=== PATIENT | female | born 1935 | race Caucasian/White ===

== ENCOUNTER 2016-12-12 08:39 | Inpatient (IN) | payer BC, MEDICARE ==
[2016-12-12] MEDS ORDERED: SODIUM CHLORIDE 0.9% 1000 ML SOL IV SCH (09:15)
[2016-12-12 09:27] LABS: APPEARANCE,URINE Clear; BILIRUBIN,URINE 1+ (NEGATIVE); COLOR,URINE Yellow; GLUCOSE, URINE (UA) NEGATIVE (NEGATIVE); KETONES,URINE TRACE (NEGATIVE); LEUKOCYTE ESTERASE ,URINE NEGATIVE (NEGATIVE); NITRATE,URINE NEGATIVE (NEGATIVE); OCCULT BLOOD,URINE TRACE LYSED (NEG-TRACE); PH,URINE 5.5
[2016-12-12 09:49] LABS: ICTOTEST,URINE NEGATIVE (NEGATIVE); RBC,URINE 0-2 (0-3AV/HPF); WBC,URINE 0-2 (0-5AV/HPF)
[2016-12-12 09:58] LABS: HEMATOCRIT 52 % (35-47); MEAN CORPUSCULAR HGB CONC 33.4 gm/dl (32.0-36.0); MEAN CORPUSCULAR VOLUME 87 fL (81-99)
[2016-12-12] MEDS ORDERED: ACETAMINOPHEN 325 MG PO ONE (10:07)
[2016-12-12] MEDS ORDERED: ACETAMINOPHEN 325 MG ONE (10:08)
[2016-12-12 10:11] LABS: BASOPHILS % (MANUAL) 0 % (0-3); EOSINOPHILS % (MANUAL) 0 % (0-9); LYMPHOCYTES % (MANUAL) 16 % (10-50); NORMAL RBCS PRESENT
[2016-12-12 10:23] LABS: CALCIUM 8.2 mg/dl (8.5-10.1); POTASSIUM 4.3 mMol/L (3.5-5.1)
[2016-12-12] MEDS: SODIUM CHLORIDE 0.9% 1000ML 1,000 ML IV SCH ×2 (10:43→19:33)
[2016-12-12] MEDS ORDERED: WARFARIN SODIUM 5 MG TAB PO SCH (14:00)
[2016-12-12] MEDS ORDERED: DILTIAZEM ER 120 MG C24 ONE (14:04)
[2016-12-12] MEDS: DILTIAZEM ER 120 MG C24 PO SCH (14:28)
[2016-12-12] MEDS: OSELTAMIVIR PHOSPHATE 75 MG CAP PO SCH ×2 (16:19→21:36)
[2016-12-12] MEDS: DOCUSATE SODIUM 100 MG SGL PO SCH (21:36)
[2016-12-13] MEDS: SODIUM CHLORIDE 0.9% 1000ML 1,000 ML IV SCH (03:10)
[2016-12-13 07:35] LABS: BASOPHILS % (AUTO) 2 % (0-3); EOSINOPHILS % (AUTO) 0 % (0-9); HEMATOCRIT 40 % (35-47); MEAN CORPUSCULAR HGB CONC 35.8 gm/dl (32.0-36.0); MEAN CORPUSCULAR VOLUME 87 fL (81-99); MONOCYTES % (AUTO) 11.9 % (0-12); NEUTROPHILS % (AUTO) 35.7 % (37-80)
[2016-12-13 07:37] LABS: CALCIUM 6.9 mg/dl (8.5-10.1); POTASSIUM 4.5 mMol/L (3.5-5.1)
[2016-12-13] MEDS: DILTIAZEM ER 120 MG C24 PO SCH (08:35)
[2016-12-13] MEDS: DOCUSATE SODIUM 100 MG SGL PO SCH ×2 (08:35→20:36)
[2016-12-13] MEDS: FOLIC ACID 1 MG TAB PO SCH (08:36)
[2016-12-13] MEDS: ENOXAPARIN 40 MG SOL SC SCH (08:37)
[2016-12-13] MEDS: OSELTAMIVIR PHOSPHATE 75 MG CAP PO SCH ×2 (08:42→20:36)
[2016-12-13] MEDS: DEXTROSE/SALINE 0.45% 1,000 ML IV SCH ×2 (08:46→19:11)
[2016-12-13] MEDS ORDERED: WARFARIN SODIUM 7.5 MG TAB PO SCH ×2 (13:49→18:00)
[2016-12-14] MEDS: DEXTROSE/SALINE 0.45% 1,000 ML IV SCH (04:55)
[2016-12-14 07:18] LABS: BASOPHILS % (AUTO) 1 % (0-3); EOSINOPHILS % (AUTO) 2 % (0-9); HEMATOCRIT 43 % (35-47); MEAN CORPUSCULAR HGB CONC 33.3 gm/dl (32.0-36.0); MEAN CORPUSCULAR VOLUME 88 fL (81-99); MONOCYTES % (AUTO) 9.6 % (0-12); NEUTROPHILS % (AUTO) 18.6 % (37-80)
[2016-12-14 07:47] LABS: CALCIUM 7.5 mg/dl (8.5-10.1); POTASSIUM 3.7 mMol/L (3.5-5.1)
[2016-12-14] MEDS: ENOXAPARIN 40 MG SOL SC SCH (09:12)
[2016-12-14] MEDS: OSELTAMIVIR PHOSPHATE 75 MG CAP PO SCH ×2 (09:13→20:22)
[2016-12-14] MEDS: DOCUSATE SODIUM 100 MG SGL PO SCH ×2 (09:13→20:22)
[2016-12-14] MEDS: FOLIC ACID 1 MG TAB PO SCH (09:13)
[2016-12-14] MEDS: DILTIAZEM ER 120 MG C24 PO SCH (09:13)
[2016-12-14 11:50] VITALS: RESP 20
[2016-12-14] MEDS: SODIUM CHLORIDE 0.9% FLUSH 10 ML SOL IV SCH (15:45)
[2016-12-14] MEDS ORDERED: WARFARIN SODIUM 5 MG TAB PO SCH (18:00)
[2016-12-14] MEDS: WARFARIN SODIUM 7.5 MG TAB PO SCH (18:32)
[2016-12-15] MEDS: SODIUM CHLORIDE 0.9% FLUSH 10 ML SOL IV SCH ×2 (01:24→09:07)
[2016-12-15 08:43] VITALS: BP 130/82; TEMP 98.5; O2SAT 94
[2016-12-15] MEDS: DILTIAZEM ER 120 MG C24 PO SCH (08:50)
[2016-12-15] MEDS: FOLIC ACID 1 MG TAB PO SCH (08:51)
[2016-12-15] MEDS: DOCUSATE SODIUM 100 MG SGL PO SCH (08:51)
[2016-12-15] MEDS: ENOXAPARIN 40 MG SOL SC SCH (08:52)
[2016-12-15] MEDS: OSELTAMIVIR PHOSPHATE 75 MG CAP PO SCH (08:52)
[2016-12-15] MEDS: WARFARIN SODIUM 7.5 MG TAB PO SCH (09:08)
[2016-12-15 11:22] VITALS: PULSE 85
== END 2016-12-15 11:30 | DRG 641 ==
LOC: ED 08:39 → UNDOADMIN 11:29 → ACUTE CARE 11:29
PROVIDERS: ADMIT Family Medicine; ATTEND Family Medicine
PROC: F01ZDFZ Gait and/or Balance Assessment using Assistive, Adaptive, Supportive or Protective Equipment (ICD-10-PCS; principal; 2016-12-13)
PROC: F01ZBZZ Bed Mobility Assessment (ICD-10-PCS; 2016-12-13)
PROC: F01ZCZZ Transfer Assessment (ICD-10-PCS; 2016-12-13)
PROC: F02Z1ZZ Dressing Assessment (ICD-10-PCS; 2016-12-13)
PROC: F02Z0ZZ Bathing/Showering Assessment (ICD-10-PCS; 2016-12-13)
PROC: F02Z3ZZ Grooming/Personal Hygiene Assessment (ICD-10-PCS; 2016-12-13)
DX: E86.0 Dehydration (principal); J09.X2 Influenza due to identified novel influenza A virus with other respiratory manifestations; I48.2 Chronic atrial fibrillation; F03.90 Unspecified dementia, unspecified severity, without behavioral disturbance, psychotic disturbance, mood disturbance, and anxiety; R53.1 Weakness; R29.6 Repeated falls; Z79.01 Long term (current) use of anticoagulants
CPT/HCPCS: 36415; 71010; 80048; 81001; 82550; 84484; 85007; 85025; 85027; 85610; 87804; 93005; 93012; 94150; 94664; 96365; 96366; 99238; 99285; J1650

== ENCOUNTER 2018-03-11 14:41 | Emergency (ER) | payer MEDICARE, BC ==
[2018-03-11 14:41] VITALS: O2SAT 98
[2018-03-11 14:47] VITALS: BP 112/84; PULSE 110; RESP 22; TEMP 98.3
[2018-03-11] MEDS ORDERED: KETOROLAC TROMETHAMINE 30 MG/ML SOL IM ONE (15:47)
[2018-03-11] MEDS ORDERED: SODIUM CHLORIDE 0.9% 500 ML SOL IV ONE (15:48)
[2018-03-11] MEDS ORDERED: KETOROLAC TROMETHAMINE 30 MG/ML SOL ONE (15:51)
[2018-03-11] MEDS ORDERED: KETOROLAC TROMETHAMINE 30 MG/ML SOL IV ONE (15:51)
[2018-03-11 16:42] LABS: ALBUMIN 2.9 gm/dl (3.4-5.0); BILIRUBIN,TOTAL 0.6 mg/dl (0.2-1.0); CALCIUM 8.6 mg/dl (8.5-10.1); CARBON DIOXIDE 26.6 mEq/L (21-32); CREATININE 1.37 mg/dl (0.60-1.00); POTASSIUM 3.8 mMol/L (3.5-5.1); TOTAL PROTEIN 8.8 gm/dl (6.4-8.2)
== END 2018-03-11 18:25 | disposition home or self-care (01) | DRG 552 ==
LOC: ED 14:41
DX: S32.010A Wedge compression fracture of first lumbar vertebra, initial encounter for closed fracture (principal); Z91.81 History of falling; W19.XXXA Unspecified fall, initial encounter
CPT/HCPCS: 72120; 80053; 96365; 96374; 99283; 99284; J1885

== ENCOUNTER 2018-03-28 15:19 | Emergency (ER) | payer MEDICARE, BC ==
[2018-03-28 16:24] LABS: BASOPHILS % (AUTO) 0 % (0-3); EOSINOPHILS % (AUTO) 0 % (0-9); HEMATOCRIT 49 % (35-47); HEMOGLOBIN 16.1 gm/dl (12.0-15.5); LYMPHOCYTES % (AUTO) 23.3 % (10-50); MEAN CORPUSCULAR HEMOGLOBIN 27.9 pg (27.0-32.0); MEAN CORPUSCULAR HGB CONC 32.8 gm/dl (32.0-36.0); MEAN CORPUSCULAR VOLUME 85 fL (81-99); MONOCYTES % (AUTO) 11.9 % (0-12); NEUTROPHILS % (AUTO) 63.9 % (37-80)
[2018-03-28 16:33] LABS: CALCIUM 9.1 mg/dl (8.5-10.1); CARBON DIOXIDE 24.4 mEq/L (21-32); CREATININE 1.02 mg/dl (0.60-1.00)
[2018-03-28] MEDS ORDERED: LIDOCAINE HCL 1% MPF 30 SOL ONE (16:37)
[2018-03-28 17:32] LABS: APPEARANCE,URINE Clear; BILIRUBIN,URINE 2+ (NEGATIVE); COLOR,URINE Dark yellow; GLUCOSE, URINE (UA) NEGATIVE (NEGATIVE); KETONES,URINE NEGATIVE (NEGATIVE); LEUKOCYTE ESTERASE ,URINE NEGATIVE (NEGATIVE); NITRATE,URINE NEGATIVE (NEGATIVE); OCCULT BLOOD,URINE TRACE INTACT (NEG-TRACE); PH,URINE 5.5
[2018-03-28 17:54] LABS: ICTOTEST,URINE NEGATIVE (NEGATIVE)
[2018-03-28 18:13] LABS: BACTERIA RARE (< 1+); CRYSTALS NEGATIVE (0-3 AVE/HPF); EPITHELIAL CELLS RARE (SQUAMOUS); WBC,URINE 0-2 (0-5AV/HPF)
[2018-03-28] MEDS: SODIUM CHLORIDE 0.9% FLUSH 10 ML SOL IV PRN (18:29)
[2018-03-28] MEDS: SODIUM CHLORIDE 0.9% 1000ML 1,000 ML IV ONE (18:32)
[2018-03-28 19:39] VITALS: RESP 20
[2018-03-28 22:00] VITALS: BP 142/99; PULSE 79; TEMP 98.6; O2SAT 93
== END 2018-03-28 21:50 | disposition home or self-care (01) | DRG 641 ==
LOC: ED 15:19
DX: E86.0 Dehydration (principal); R41.0 Disorientation, unspecified; R53.1 Weakness
CPT/HCPCS: 36415; 71045; 80048; 81001; 85025; 93005; 96365; 96366; 99284; J2001

== ENCOUNTER 2018-04-10 11:51 | Inpatient (IN) | payer MEDICARE, BC ==
[2018-04-10] MEDS ORDERED: SODIUM CHLORIDE 0.9% 500 ML 500 ML IV ONE (12:23)
[2018-04-10] MEDS ORDERED: SODIUM CHLORIDE 0.9% FLUSH 10 ML SOL IV PRN (12:23)
[2018-04-10 12:37] LABS: HEMATOCRIT 47 % (35-47); HEMOGLOBIN 16.1 gm/dl (12.0-15.5); MEAN CORPUSCULAR HEMOGLOBIN 28.5 pg (27.0-32.0); MEAN CORPUSCULAR HGB CONC 34.1 gm/dl (32.0-36.0); MEAN CORPUSCULAR VOLUME 84 fL (81-99)
[2018-04-10 12:42] LABS: CALCIUM 8.9 mg/dl (8.5-10.1); CARBON DIOXIDE 23.3 mEq/L (21-32); CREATININE 1.03 mg/dl (0.60-1.00); POTASSIUM 3.8 mMol/L (3.5-5.1)
[2018-04-10 12:53] LABS: BAND NEUTROPHILS % (MANUAL) 6 %; BASOPHILS % (MANUAL) 0 % (0-3); EOSINOPHILS % (MANUAL) 0 % (0-9); LYMPHOCYTES % (MANUAL) 26 % (10-50); MONOCYTES % (MANUAL) 10 % (0-12); NEUTROPHILS % (MANUAL) 58 % (37-80)
[2018-04-10 12:54] LABS: NORMAL RBCS PRESENT
[2018-04-10] MEDS ORDERED: SODIUM CHLORIDE 0.9% 1000ML 500 ML IV ONE (13:00)
[2018-04-10] MEDS ORDERED: SODIUM CHLORIDE 0.9% 1000ML 1,000 ML IV ONE (13:24)
[2018-04-10 13:27] LABS: APPEARANCE,URINE Slightly Cloudy; BILIRUBIN,URINE 3+ (NEGATIVE); COLOR,URINE Amber; GLUCOSE, URINE (UA) NEGATIVE (NEGATIVE); KETONES,URINE 1+ (NEGATIVE); LEUKOCYTE ESTERASE ,URINE NEGATIVE (NEGATIVE); NITRATE,URINE NEGATIVE (NEGATIVE); OCCULT BLOOD,URINE TRACE INTACT (NEG-TRACE); PH,URINE 5.5
[2018-04-10 14:16] LABS: BACTERIA 2+ (< 1+); CRYSTALS NEGATIVE (0-3 AVE/HPF); EPITHELIAL CELLS 0-1 (SQUAMOUS); ICTOTEST,URINE POSITIVE (NEGATIVE); RBC,URINE 0-1 (0-3AV/HPF); WBC,URINE 0-2 (0-5AV/HPF)
[2018-04-10] MEDS ORDERED: LEVOFLOXACIN 25 MG/ML SOL IV ONE (14:40)
[2018-04-10] MEDS ORDERED: LEVOFLOXACIN 25 MG/ML 500 MG in SODIUM CHLORIDE 0.9% 100 ML 100 ML IV SCH (15:00)
[2018-04-10] MEDS ORDERED: TRAMADOL HYDROCHLORIDE 50 MG TAB PO PRN (17:54)
[2018-04-10] MEDS: DILTIAZEM ER 120 MG C24 PO SCH (19:17)
[2018-04-10] MEDS: SODIUM CHLORIDE 0.9% 1000ML 1,000 ML IV SCH (19:18)
[2018-04-11] MEDS: SODIUM CHLORIDE 0.9% 1000ML 1,000 ML IV SCH ×4 (00:30→18:49)
[2018-04-11 07:25] LABS: BASOPHILS % (AUTO) 1 % (0-3); EOSINOPHILS % (AUTO) 0 % (0-9); HEMATOCRIT 39 % (35-47); HEMOGLOBIN 13.2 gm/dl (12.0-15.5); LYMPHOCYTES % (AUTO) 22.5 % (10-50); MEAN CORPUSCULAR HGB CONC 33.5 gm/dl (32.0-36.0); MEAN CORPUSCULAR VOLUME 83 fL (81-99); MONOCYTES % (AUTO) 12.1 % (0-12); NEUTROPHILS % (AUTO) 64.6 % (37-80)
[2018-04-11 07:31] LABS: CALCIUM 7.7 mg/dl (8.5-10.1); CARBON DIOXIDE 22.8 mEq/L (21-32); CREATININE 0.81 mg/dl (0.60-1.00); POTASSIUM 3.6 mMol/L (3.5-5.1)
[2018-04-11] MEDS ORDERED: LEVOFLOXACIN 500 MG TAB PO SCH (09:00)
[2018-04-11] MEDS: DILTIAZEM ER 120 MG C24 PO SCH (09:47)
[2018-04-11] MEDS ORDERED: CALCIUM GLUCONATE 10% 100 MG/ML SOL IV ONE (09:51)
[2018-04-11] MEDS ORDERED: SODIUM CHLORIDE 0.9% 100 ML 100 ML IV ONE (09:51)
[2018-04-11] MEDS: ENOXAPARIN 40 MG SOL SC SCH (09:56)
[2018-04-11] MEDS: CALCIUM GLUCONATE 10% 1,000 MG in SODIUM CHLORIDE 0.9% 100 ML 100 ML IV SCH (09:57)
[2018-04-12] MEDS ORDERED: SODIUM CHLORIDE 0.9% IV SCH ×2 (07:15→09:00)
[2018-04-12] MEDS ORDERED: INFLIXIMAB IV SCH ×2 (07:15→09:00)
[2018-04-12] MEDS ORDERED: SODIUM CHLORIDE 0.9% 1000ML 1,000 ML IV SCH (07:30)
[2018-04-12 07:59] LABS: ALBUMIN 1.6 gm/dl (3.4-5.0); BILIRUBIN,TOTAL 0.5 mg/dl (0.2-1.0); CALCIUM 7.9 mg/dl (8.5-10.1); CARBON DIOXIDE 22.4 mEq/L (21-32); CREATININE 0.74 mg/dl (0.60-1.00); POTASSIUM 3.5 mMol/L (3.5-5.1); TOTAL PROTEIN 6.2 gm/dl (6.4-8.2)
[2018-04-12] MEDS: DEXTROSE/SALINE 0.45%/KCL10MEQ 1,000 ML/1,000 ML SOL IV SCH ×2 (08:14→20:24)
[2018-04-12] MEDS: DILTIAZEM ER 120 MG C24 PO SCH (08:36)
[2018-04-12] MEDS: ENOXAPARIN 40 MG SOL SC SCH (09:02)
[2018-04-12] MEDS ORDERED: CALCIUM GLUCONATE 10% 100 MG/ML SOL IV ONE (09:33)
[2018-04-12] MEDS: CALCIUM GLUCONATE 10% 1,000 MG in SODIUM CHLORIDE 0.9% 100 ML 100 ML IV SCH (09:40)
[2018-04-12] MEDS ORDERED: SODIUM CHLORIDE 0.9% 250 ML 250 ML IV ONE ×2 (14:28→14:51)
[2018-04-12] MEDS ORDERED: INFLIXIMAB 100 MG IV ONE (14:50)
[2018-04-13] MEDS: DEXTROSE/SALINE 0.45%/KCL10MEQ 1,000 ML/1,000 ML SOL IV SCH ×3 (04:27→20:29)
[2018-04-13] MEDS: DILTIAZEM ER 120 MG C24 PO SCH (08:40)
[2018-04-13] MEDS: ENOXAPARIN 40 MG SOL SC SCH (08:40)
[2018-04-13] MEDS: CALCIUM GLUCONATE 10% 1,000 MG in SODIUM CHLORIDE 0.9% 100 ML 100 ML IV SCH (11:15)
[2018-04-14] MEDS: DEXTROSE/SALINE 0.45%/KCL10MEQ 1,000 ML/1,000 ML SOL IV SCH (04:18)
[2018-04-14 07:30] LABS: CALCIUM 8.3 mg/dl (8.5-10.1); CARBON DIOXIDE 23.5 mEq/L (21-32); CREATININE 0.73 mg/dl (0.60-1.00); POTASSIUM 3.3 mMol/L (3.5-5.1)
[2018-04-14 07:46] LABS: BASOPHILS % (AUTO) 1 % (0-3); EOSINOPHILS % (AUTO) 3 % (0-9); HEMATOCRIT 42 % (35-47); HEMOGLOBIN 13.9 gm/dl (12.0-15.5); LYMPHOCYTES % (AUTO) 34.8 % (10-50); MEAN CORPUSCULAR HGB CONC 33.2 gm/dl (32.0-36.0); MEAN CORPUSCULAR VOLUME 84 fL (81-99); NEUTROPHILS % (AUTO) 50.1 % (37-80)
[2018-04-14 08:03] VITALS: BP 147/94; PULSE 77; RESP 20; TEMP 97.7; O2SAT 95
[2018-04-14] MEDS ORDERED: POTASSIUM CHLORIDE 10 MEQ TER PO SCH (08:15)
[2018-04-14] MEDS ORDERED: PNEUMOCOCCAL VACCINE 0.5 ML SOL IM ONE (08:57)
[2018-04-14] MEDS: DILTIAZEM ER 120 MG C24 PO SCH (09:00)
[2018-04-14] MEDS: ENOXAPARIN 40 MG SOL SC SCH (09:00)
== END 2018-04-14 14:10 | DRG 641 ==
LOC: ED 11:51 → UNDOADMIN 15:00 → ACUTE CARE 15:00
PROVIDERS: ADMIT Family Medicine; ATTEND Family Medicine
PROC: F01K5YZ Range of Motion and Joint Integrity Assessment of Musculoskeletal System - Upper Back / Upper Extremity using Other Equipment (ICD-10-PCS; principal; 2018-04-11)
PROC: F02Z0FZ Bathing/Showering Assessment using Assistive, Adaptive, Supportive or Protective Equipment (ICD-10-PCS; 2018-04-11)
PROC: F02Z2ZZ Feeding/Eating Assessment (ICD-10-PCS; 2018-04-11)
PROC: F01ZDFZ Gait and/or Balance Assessment using Assistive, Adaptive, Supportive or Protective Equipment (ICD-10-PCS; 2018-04-11)
PROC: F01ZBFZ Bed Mobility Assessment using Assistive, Adaptive, Supportive or Protective Equipment (ICD-10-PCS; 2018-04-11)
DX: E86.0 Dehydration (principal); E87.1 Hypo-osmolality and hyponatremia; D72.829 Elevated white blood cell count, unspecified; R00.0 Tachycardia, unspecified; R53.1 Weakness; M06.9 Rheumatoid arthritis, unspecified; I48.2 Chronic atrial fibrillation; F03.90 Unspecified dementia, unspecified severity, without behavioral disturbance, psychotic disturbance, mood disturbance, and anxiety; Z91.81 History of falling
CPT/HCPCS: 36415; 71045; 80048; 80053; 81001; 85007; 85025; 85027; 87040; 87088; 90732; 93005; 96365; 96366; 99070; 99232; 99284; 99285; J0610; J1650; J1745; J1956; A6232; A9270-GY; G0008

== ENCOUNTER 2018-09-01 10:53 | Inpatient (IN) | payer MEDICARE, BC ==
[2018-09-01] MEDS ORDERED: SODIUM CHLORIDE 0.9% 500 ML 500 ML IV ONE ×2 (11:28→13:36)
[2018-09-01 12:19] LABS: HEMATOCRIT 54 % (35-47); HEMOGLOBIN 16.8 gm/dl (12.0-15.5); MEAN CORPUSCULAR HEMOGLOBIN 26.1 pg (27.0-32.0); MEAN CORPUSCULAR HGB CONC 31.1 gm/dl (32.0-36.0); MEAN CORPUSCULAR VOLUME 84 fL (81-99)
[2018-09-01 12:21] LABS: APPEARANCE,URINE Slightly Cloudy; BILIRUBIN,URINE NEGATIVE (NEGATIVE); COLOR,URINE Dark yellow; GLUCOSE, URINE (UA) NEGATIVE (NEGATIVE); KETONES,URINE NEGATIVE (NEGATIVE); LEUKOCYTE ESTERASE ,URINE 1+ (NEGATIVE); NITRATE,URINE NEGATIVE (NEGATIVE); OCCULT BLOOD,URINE NEGATIVE (NEG-TRACE)
[2018-09-01 12:32] LABS: BILIRUBIN,TOTAL 0.9 mg/dl (0.2-1.0); CALCIUM 8.3 mg/dl (8.5-10.1); CARBON DIOXIDE 23.9 mEq/L (21-32); CREATININE 1.25 mg/dl (0.60-1.00); POTASSIUM 4.7 mMol/L (3.5-5.1); TOTAL PROTEIN 7.6 gm/dl (6.4-8.2)
[2018-09-01 12:38] LABS: BAND NEUTROPHILS % (MANUAL) 14 %; BASOPHILS % (MANUAL) 0 % (0-3); EOSINOPHILS % (MANUAL) 0 % (0-9); LYMPHOCYTES % (MANUAL) 24 % (10-50); MONOCYTES % (MANUAL) 9 % (0-12); NEUTROPHILS % (MANUAL) 53 % (37-80); NORMAL RBCS PRESENT
[2018-09-01 12:39] LABS: BACTERIA 1+ (< 1+); CRYSTALS 3-5 CA OXALATE (0-3 AVE/HPF); RBC,URINE NEG (0-3AV/HPF)
[2018-09-01] MEDS ORDERED: ACETAMINOPHEN 500 MG 500 MG TAB PO PRN (13:38)
[2018-09-01] MEDS ORDERED: MAGNESIUM HYDROXIDE 30 ML SUS PO SCH (13:45)
[2018-09-01] MEDS: SODIUM CHLORIDE 0.9% FLUSH 10 ML SOL IV SCH ×2 (16:45→22:13)
[2018-09-01] MEDS: SODIUM CHLORIDE 0.9% 1000ML 1,000 ML IV SCH ×2 (17:29→22:13)
[2018-09-01] MEDS ORDERED: SODIUM CHLORIDE 0.9% 50 ML 50 ML IV ONE (17:30)
[2018-09-01] MEDS ORDERED: CEFTRIAXONE 1 GM PDS ONE (17:30)
[2018-09-01] MEDS: CEFTRIAXONE 1 GM PDS 1 GM in SODIUM CHLORIDE 0.9% 50 ML 50 ML IV SCH (17:40)
[2018-09-01 17:51] LABS: CALCIUM 7.6 mg/dl (8.5-10.1); CARBON DIOXIDE 25.1 mEq/L (21-32); CREATININE 0.97 mg/dl (0.60-1.00); POTASSIUM 3.9 mMol/L (3.5-5.1)
[2018-09-01] MEDS: PEG-400/PROPYLENE GLYCOL 1 DROP SOL RIGHTEYE SCH (20:59)
[2018-09-01] MEDS: MIRTAZAPINE 15 MG TAB PO SCH (21:00)
[2018-09-01] MEDS: DOXYCYCLINE 100 MG TAB PO SCH (21:01)
[2018-09-02 07:20] LABS: CALCIUM 7.6 mg/dl (8.5-10.1); CARBON DIOXIDE 23.9 mEq/L (21-32); CREATININE 0.97 mg/dl (0.60-1.00); POTASSIUM 3.8 mMol/L (3.5-5.1)
[2018-09-02 07:22] LABS: BASOPHILS % (AUTO) 1 % (0-3); EOSINOPHILS % (AUTO) 0 % (0-9); HEMATOCRIT 46 % (35-47); HEMOGLOBIN 14.8 gm/dl (12.0-15.5); LYMPHOCYTES % (AUTO) 21.9 % (10-50); MEAN CORPUSCULAR HEMOGLOBIN 26.7 pg (27.0-32.0); MEAN CORPUSCULAR HGB CONC 31.9 gm/dl (32.0-36.0); MEAN CORPUSCULAR VOLUME 84 fL (81-99); MONOCYTES % (AUTO) 12.4 % (0-12); NEUTROPHILS % (AUTO) 64.7 % (37-80)
[2018-09-02] MEDS: SODIUM CHLORIDE 0.9% FLUSH 10 ML SOL IV SCH ×2 (07:47→20:08)
[2018-09-02] MEDS: SODIUM CHLORIDE 0.9% 1000ML 1,000 ML IV SCH ×2 (08:38→19:50)
[2018-09-02] MEDS: DOXYCYCLINE 100 MG TAB PO SCH ×2 (09:57→20:46)
[2018-09-02] MEDS: DILTIAZEM ER 120 MG C24 PO SCH (09:57)
[2018-09-02] MEDS: PEG-400/PROPYLENE GLYCOL 1 DROP SOL RIGHTEYE SCH ×2 (09:58→20:46)
[2018-09-02] MEDS: SERTRALINE HYDROCHLORIDE 50 MG TAB PO SCH (09:58)
[2018-09-02] MEDS: ASPIRIN 81 MG CHEWABLE CTB PO SCH (09:58)
[2018-09-02] MEDS ORDERED: CEFTRIAXONE 1 GM PDS ONE (17:31)
[2018-09-02] MEDS ORDERED: SODIUM CHLORIDE 0.9% 50 ML 50 ML IV ONE (17:31)
[2018-09-02] MEDS: CEFTRIAXONE 1 GM PDS 1 GM in SODIUM CHLORIDE 0.9% 50 ML 50 ML IV SCH (17:38)
[2018-09-02] MEDS: MIRTAZAPINE 15 MG TAB PO SCH (20:46)
[2018-09-03] MEDS: SODIUM CHLORIDE 0.9% FLUSH 10 ML SOL IV SCH ×3 (05:09→21:55)
[2018-09-03 07:44] LABS: HEMATOCRIT 49 % (35-47); HEMOGLOBIN 15.1 gm/dl (12.0-15.5); MEAN CORPUSCULAR HEMOGLOBIN 26.1 pg (27.0-32.0); MEAN CORPUSCULAR VOLUME 84 fL (81-99)
[2018-09-03 07:46] LABS: CALCIUM 7.7 mg/dl (8.5-10.1); CARBON DIOXIDE 21.9 mEq/L (21-32); CREATININE 0.9 mg/dl (0.60-1.00); POTASSIUM 3.7 mMol/L (3.5-5.1)
[2018-09-03] MEDS: DILTIAZEM ER 120 MG C24 PO SCH (08:22)
[2018-09-03] MEDS: SERTRALINE HYDROCHLORIDE 50 MG TAB PO SCH (08:22)
[2018-09-03] MEDS: PEG-400/PROPYLENE GLYCOL 1 DROP SOL RIGHTEYE SCH ×2 (08:22→20:40)
[2018-09-03] MEDS: DOXYCYCLINE 100 MG TAB PO SCH ×2 (08:22→20:40)
[2018-09-03] MEDS: ASPIRIN 81 MG CHEWABLE CTB PO SCH (08:22)
[2018-09-03 08:23] LABS: BAND NEUTROPHILS % (MANUAL) 2 %; BASOPHILS % (MANUAL) 0 % (0-3); EOSINOPHILS % (MANUAL) 2 % (0-9); LYMPHOCYTES % (MANUAL) 20 % (10-50); MONOCYTES % (MANUAL) 10 % (0-12); NEUTROPHILS % (MANUAL) 66 % (37-80)
[2018-09-03 08:24] LABS: ANISOCYTOSIS SLIGHT
[2018-09-03] MEDS: SODIUM CHLORIDE 0.9% 1000ML 1,000 ML IV SCH ×2 (15:08→15:09)
[2018-09-03] MEDS: CEFTRIAXONE 1 GM PDS 1 GM in SODIUM CHLORIDE 0.9% 50 ML 50 ML IV SCH (17:45)
[2018-09-03] MEDS ORDERED: CEFTRIAXONE 1 GM PDS ONE (18:03)
[2018-09-03] MEDS: MIRTAZAPINE 15 MG TAB PO SCH (20:40)
[2018-09-04] MEDS: SODIUM CHLORIDE 0.9% FLUSH 10 ML SOL IV SCH (05:58)
[2018-09-04 07:42] LABS: CALCIUM 7.8 mg/dl (8.5-10.1); CARBON DIOXIDE 23.4 mEq/L (21-32); CREATININE 0.93 mg/dl (0.60-1.00)
[2018-09-04 08:41] VITALS: BP 159/104; PULSE 80; RESP 12; TEMP 97.2; O2SAT 95
[2018-09-04] MEDS: DILTIAZEM ER 120 MG C24 PO SCH (08:58)
[2018-09-04] MEDS: ASPIRIN 81 MG CHEWABLE CTB PO SCH (08:58)
[2018-09-04] MEDS: SERTRALINE HYDROCHLORIDE 50 MG TAB PO SCH (08:58)
[2018-09-04] MEDS: DOXYCYCLINE 100 MG TAB PO SCH (08:58)
[2018-09-04] MEDS: PEG-400/PROPYLENE GLYCOL 1 DROP SOL RIGHTEYE SCH (08:59)
== END 2018-09-04 10:45 | DRG 640 ==
LOC: ED 10:53 → ACUTE CARE 13:30 → UNDOADMIN 13:30 → ACUTE CARE 14:10
PROVIDERS: ADMIT Family Medicine; ATTEND Family Medicine
DX: E86.0 Dehydration (principal); J18.9 Pneumonia, unspecified organism; I10 Essential (primary) hypertension; I48.91 Unspecified atrial fibrillation; R53.1 Weakness; I48.2 Chronic atrial fibrillation; F03.90 Unspecified dementia, unspecified severity, without behavioral disturbance, psychotic disturbance, mood disturbance, and anxiety; R91.8 Other nonspecific abnormal finding of lung field; E87.1 Hypo-osmolality and hyponatremia
CPT/HCPCS: 36415; 51798; 71046; 80048; 80053; 81001; 83880; 85007; 85025; 85027; 87088; 99070; 99283; J0696; A9270-GY

== ENCOUNTER 2018-09-08 20:18 | Emergency (ER) | payer MEDICARE, BC ==
[2018-09-08 20:50] VITALS: TEMP 98.3
[2018-09-08 21:04] LABS: HEMATOCRIT 52 % (35-47); HEMOGLOBIN 15.8 gm/dl (12.0-15.5); MEAN CORPUSCULAR HEMOGLOBIN 25.8 pg (27.0-32.0); MEAN CORPUSCULAR HGB CONC 30.5 gm/dl (32.0-36.0); MEAN CORPUSCULAR VOLUME 85 fL (81-99)
[2018-09-08 21:07] LABS: CALCIUM 9.1 mg/dl (8.5-10.1); CREATININE 1.38 mg/dl (0.60-1.00)
[2018-09-08 21:12] LABS: CARBON DIOXIDE 32.7 mEq/L (21-32); POTASSIUM 4.9 mMol/L (3.5-5.1)
[2018-09-08 21:16] LABS: BAND NEUTROPHILS % (MANUAL) 14 %; BASOPHILS % (MANUAL) 0 % (0-3); EOSINOPHILS % (MANUAL) 2 % (0-9); LYMPHOCYTES % (MANUAL) 30 % (10-50); MONOCYTES % (MANUAL) 6 % (0-12); NEUTROPHILS % (MANUAL) 48 % (37-80); NORMAL RBCS PRESENT
[2018-09-08] MEDS ORDERED: ALBUTEROL/IPRATROPIUM 1 VIAL SOL INH ONE (21:37)
[2018-09-08] MEDS ORDERED: ALBUTEROL/IPRATROPIUM 1 VIAL SOL ONE (21:39)
[2018-09-08 22:00] VITALS: RESP 20
[2018-09-08 22:29] VITALS: BP 131/91; PULSE 86; O2SAT 92
== END 2018-09-08 22:28 | DRG 195 ==
LOC: ED 20:18
DX: J18.9 Pneumonia, unspecified organism (principal); I10 Essential (primary) hypertension; I48.91 Unspecified atrial fibrillation
CPT/HCPCS: 36415; 71045; 80048; 85007; 85027; 99283; 99284